=== PATIENT | female | born 1975 | race Hispanic/Latino ===

== ENCOUNTER 2024-08-25 17:28 | Emergency (ER) | payer OTHER, BC ==
[~2024-08-25] VITALS: Ht 162.6 cm; Wt 86.2 kg
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
[2024-08-25 18:14] VITALS: BP 160/90; PULSE 90; RESP 16; TEMP 98.7; O2SAT 98
[2024-08-25] MEDS: CYCLOBENZAPRINE HCL 10 MG TABLET PO ONE (18:24)
[2024-08-25] MEDS: ketOROlac 60 MG VIAL (30MG/ML) IM ONE (18:24)
[2024-08-25] MEDS ORDERED: CYCL-309 PO (18:46)
[2024-08-25] MEDS ORDERED: IBUP-2077 PO (18:46)
--- NOTE | 2024-08-25 19:16 | HMCIMG ---
CERV SPINE 2-3VWS HISTORY: Left posterior lateral cervical pain COMPARISON: None FINDINGS: 3 images of cervical spine were obtained. There is reversal of normal lordotic curvature which may be related to muscle spasm or positioning. No loss of vertebral height is seen. No fracture or dislocation is seen. There is cervical spine spondylosis. Disc space narrowings are seen at C4-5 and C5-6 levels. Degenerative changes are seen. IMPRESSION: 1. No fracture is seen. DJD.
== END 2024-08-25 18:53 | disposition home or self-care (01) ==
LOC: EDH 17:28
DX: S16.1XXA Strain of muscle, fascia and tendon at neck level, initial encounter (principal); I10 Essential (primary) hypertension; V89.2XXA Person injured in unspecified motor-vehicle accident, traffic, initial encounter; Y93.89 Activity, other specified; Y92.488 Other paved roadways as the place of occurrence of the external cause; Y99.8 Other external cause status
CPT/HCPCS: 99283; 72040; 96372; J1885